=== PATIENT | male | born 1950 | race Caucasian/White ===

== ENCOUNTER 2023-04-07 07:42 | Day surgery (SDC) | payer MEDICARE, OTHER ==
[2023-04-07] MEDS ORDERED: Lactated Ringers 1,000 ML IV SCH (08:00)
[2023-04-07] MEDS ORDERED: Sodium Chloride 0.9% 10 ML Syringe FLUSH PRN (08:00)
[2023-04-07] MEDS ORDERED: Midazolam 1 MG/ML 2 ML SDV ONE (09:02)
[2023-04-07] MEDS ORDERED: Propofol 200 MG/20 ML SDV ONE (09:03)
== END 2023-04-07 10:35 | disposition home or self-care (01) ==
LOC: KA.SDS 07:42
PROVIDERS: ATTEND Family Medicine
DX: Z12.11 Encounter for screening for malignant neoplasm of colon (principal); K64.9 Unspecified hemorrhoids; I48.91 Unspecified atrial fibrillation; E78.5 Hyperlipidemia, unspecified; H61.23 Impacted cerumen, bilateral; N18.30 Chronic kidney disease, stage 3 unspecified; Z79.899 Other long term (current) drug therapy; I12.9 Hypertensive chronic kidney disease with stage 1 through stage 4 chronic kidney disease, or unspecified chronic kidney disease; Z79.01 Long term (current) use of anticoagulants; Z86.010 Personal history of colon polyps
CPT/HCPCS: J2250; J2704; J7120